=== PATIENT | male | born 1930 | race Hispanic/Latino ===

== ENCOUNTER 2017-10-21 10:05 | Emergency (ER) | payer MEDICARE ==
[2017-10-21] MEDS ORDERED: Famotidine 20 MG TAB ONE (12:49)
[2017-10-21] MEDS ORDERED: hydrOXYzine 25 MG TAB ONE (12:49)
== END 2017-10-21 13:16 | disposition home or self-care (01) ==
LOC: ERS 10:05
DX: L20.9 Atopic dermatitis, unspecified (principal); L29.9 Pruritus, unspecified; E11.9 Type 2 diabetes mellitus without complications; I10 Essential (primary) hypertension; F03.90 Unspecified dementia, unspecified severity, without behavioral disturbance, psychotic disturbance, mood disturbance, and anxiety; Z79.82 Long term (current) use of aspirin; Z79.84 Long term (current) use of oral hypoglycemic drugs; Z79.899 Other long term (current) drug therapy
CPT/HCPCS: 99282

== ENCOUNTER 2017-12-16 09:34 | Outpatient (CLI) | payer MEDICARE ==
[2017-12-16] MEDS ORDERED: ISOVUE-370 76%-LOCM 1 ML ONE (13:31)
== END 2017-12-16 09:35 | disposition home or self-care (01) ==
LOC: BICCT 09:34
PROVIDERS: ATTEND Internal Medicine Geriatric Medicine
DX: R10.30 Lower abdominal pain, unspecified (principal); K80.20 Calculus of gallbladder without cholecystitis without obstruction; N28.1 Cyst of kidney, acquired; N13.30 Unspecified hydronephrosis; N32.89 Other specified disorders of bladder; N40.0 Benign prostatic hyperplasia without lower urinary tract symptoms; K57.30 Diverticulosis of large intestine without perforation or abscess without bleeding
CPT/HCPCS: 74178

== ENCOUNTER 2017-12-19 19:42 | Emergency (ER) | payer MEDICARE ==
[2017-12-19 21:12] LABS: #Eosinphils 0.7 thou/uL (0.0-0.7); #Lymphocytes 1.5 thou/uL (1.20-3.40); #Monocytes 0.7 thou/uL (0.11-0.59); #Neutrophils 3.2 thou/uL (1.40-6.50); %Basophils 0.4 % (0.0-1.0); %Eosinophils 11.7 % (0.0-10.0); %Lymphocytes 24.1 % (21.0-51.0); %Monocytes 11.5 % (0.0-10.0); %Neutrophils 52.3 % (42.0-75.0); Hemoglobin 9.9 g/dL (14.0-18.0); Mean Corpuscular HGB CONC 34.2 g/dL (32.0-36.0); Mean Corpuscular Hemoglobin 31.3 pg (27.0-31.0); Mean Corpuscular Volume 91.5 fL (78.0-98.0); Mean Platelet Volume 6.4 fL (7.4-10.4); Platelet Count 304 thou/uL (130-400); RBC Distribution Width 12.8 % (11.5-14.5); Red Blood Cell (RBC) Count 3.17 mill/uL (4.70-6.10); White Blood Cell (WBC) Count 6.2 thou/uL (4.8-10.8)
[2017-12-19] MEDS ORDERED: hydrALAZINE 20 MG/ML VIAL ONE ×2 (21:30→22:48)
[2017-12-19 21:34] LABS: ALT (SGPT) 8 U/L (8-55); AST (SGOT) 15 U/L (5-34); Albumin 3.3 g/dL (3.4-4.8); Alkaline Phosphatase 93 U/L (40-150); Anion Gap 13 mmol/L (10-20); BUN (Urea Nitrogen) 21 mg/dL (8.4-25.7); Bilirubin, Total 0.3 mg/dL (0.2-1.2); CK (CPK) 37 U/L (30-200); Calc. Creatinine Clearance 0 mL/min (70-130); Carbon Dioxide 24 mmol/L (23-31); Chloride 107 mmol/L (98-107); Estimated GFR-MDRD 60; Globulin 2.9 g/dL (2.4-3.5); Glucose 102 mg/dL (83-110); Lipase 30 U/L (8-78); Potassium 4.9 mmol/L (3.5-5.1); Protein, Total 6.2 g/dL (5.8-8.1); Sodium 139 mmol/L (136-145)
[2017-12-19 21:36] LABS: CKMB 1.1 ng/mL (0-6.6); Troponin I Less than 0.010 ng/mL (< 0.028)
--- NOTE | 2017-12-21 12:44 | EKG ---
Test Reason : Blood Pressure : / mmHG Vent. Rate : 045 BPM Atrial Rate : 045 BPM P-R Int : 172 ms QRS Dur : 092 ms QT Int : 494 ms P-R-T Axes : 054 -09 059 degrees QTc Int : 427 ms Sinus bradycardia Otherwise normal ECG Confirmed by FRANCHESKA SINGH D.O. ([id number]), story editor AXEL TORRES ([id number]) on 12/21/2017 12:44:18 PM Referred By: Confirmed By:FRANCHESKA SINGH D.O.
== END 2017-12-19 23:42 | disposition home or self-care (01) ==
LOC: ERS 19:42
DX: I16.0 Hypertensive urgency (principal); K57.32 Diverticulitis of large intestine without perforation or abscess without bleeding; E11.9 Type 2 diabetes mellitus without complications; I10 Essential (primary) hypertension; F03.90 Unspecified dementia, unspecified severity, without behavioral disturbance, psychotic disturbance, mood disturbance, and anxiety; Z79.84 Long term (current) use of oral hypoglycemic drugs; Z79.82 Long term (current) use of aspirin; Z79.899 Other long term (current) drug therapy
CPT/HCPCS: 36415; 80053; 82553; 83690; 84484; 85025; 93005; 96374; 96376; J0360

== ENCOUNTER 2018-06-26 17:50 | Emergency (ER) | payer MEDICARE ==
[2018-06-26] MEDS ORDERED: Lidocaine 1% w/Epinephrine 1:100K 20 ML VIAL ONE (18:44)
[2018-06-26] MEDS ORDERED: Adacel (T-DAP) 0.5 ML SYRINGE ONE (18:45)
[2018-06-26] MEDS ORDERED: Bacitracin Zinc 1 Packet ONE (19:09)
--- NOTE | 2018-06-26 20:27 | RAD ---
RIGHT HAND THREE VIEWS: History: Fall, laceration. Comparison: None. FINDINGS: There is mild swelling of the soft tissues around the thumb. 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 Moderate vascular calcifications. IMPRESSION: 1. Chronic findings. No acute fracture or malalignment. 2. Soft tissue swelling around the thumb. POS: HOME
--- NOTE | 2018-06-26 20:34 | RAD ---
RIGHT WRIST THREE VIEWS: History: Fall. Laceration. Comparison: None. FINDINGS: Moderate vascular calcifications. No acute fracture or malalignment of the right wrist. There is mild narrowing of the radial carpal joint. There are subcortical cysts of the medial margin of the lunate with positive ulnar variance. Advanced degenerative disease of the right thumb carpal metacarpal joint. IMPRESSION: Degenerative changes. No acute abnormality. POS: HOME
== END 2018-06-26 19:47 | disposition home or self-care (01) ==
LOC: ERS 17:50
DX: S61.501A Unspecified open wound of right wrist, initial encounter (principal); F03.90 Unspecified dementia, unspecified severity, without behavioral disturbance, psychotic disturbance, mood disturbance, and anxiety; I10 Essential (primary) hypertension; E11.9 Type 2 diabetes mellitus without complications; Z79.899 Other long term (current) drug therapy; Z79.84 Long term (current) use of oral hypoglycemic drugs; Z79.82 Long term (current) use of aspirin; W20.8XXA Other cause of strike by thrown, projected or falling object, initial encounter
CPT/HCPCS: 90471; 90715; 93005; J2001

== ENCOUNTER 2018-06-27 16:41 | Emergency (ER) | payer MEDICARE | END 2018-06-27 19:30 | disposition left against medical advice (07) | LOC: ERS 16:41 | DX: Z53.21 Procedure and treatment not carried out due to patient leaving prior to being seen by health care provider (principal); E11.9 Type 2 diabetes mellitus without complications; I10 Essential (primary) hypertension; F03.90 Unspecified dementia, unspecified severity, without behavioral disturbance, psychotic disturbance, mood disturbance, and anxiety; Z79.84 Long term (current) use of oral hypoglycemic drugs; Z79.899 Other long term (current) drug therapy; Z79.82 Long term (current) use of aspirin ==

== ENCOUNTER 2018-11-15 09:41 | Inpatient (IN) | payer MEDICARE ==
[2018-11-15 10:44] LABS: #Eosinphils 0.3 thou/uL (0.0-0.7); #Lymphocytes 1.3 thou/uL (1.20-3.40); #Monocytes 0.9 thou/uL (0.11-0.59); #Neutrophils 7.5 thou/uL (1.40-6.50); %Basophils 0.4 % (0.0-1.0); %Eosinophils 3.2 % (0.0-10.0); %Monocytes 9.3 % (0.0-10.0); %Neutrophils 74.1 % (42.0-75.0); Hemoglobin 9.2 g/dL (14.0-18.0); Mean Corpuscular HGB CONC 30.6 g/dL (32.0-36.0); Mean Corpuscular Hemoglobin 25.4 pg (27.0-31.0); Mean Corpuscular Volume 83.2 fL (78.0-98.0); Mean Platelet Volume 7.1 fL (7.4-10.4); Platelet Count 397 thou/uL (130-400); RBC Distribution Width 15.5 % (11.5-14.5); Red Blood Cell (RBC) Count 3.62 mill/uL (4.70-6.10); White Blood Cell (WBC) Count 10.1 thou/uL (4.8-10.8)
[2018-11-15 10:54] LABS: ALT (SGPT) 7 U/L (8-55); AST (SGOT) 13 U/L (5-34); Albumin 3.4 g/dL (3.4-4.8); Alkaline Phosphatase 89 U/L (40-150); Anion Gap 12 mmol/L (10-20); BUN (Urea Nitrogen) 33 mg/dL (8.4-25.7); Bilirubin, Total 0.4 mg/dL (0.2-1.2); Calc. Creatinine Clearance 0 mL/min (70-130); Calcium 9.1 mg/dL (7.8-10.44); Carbon Dioxide 21 mmol/L (23-31); Chloride 107 mmol/L (98-107); Estimated GFR-MDRD 55; Globulin 3.4 g/dL (2.4-3.5); Glucose 150 mg/dL (83-110); Potassium 3.8 mmol/L (3.5-5.1); Protein, Total 6.8 g/dL (5.8-8.1); Sodium 136 mmol/L (136-145)
[2018-11-15] MEDS ORDERED: ISOVUE-370 76%-LOCM 1 ML ONE (11:03)
--- NOTE | 2018-11-15 11:44 | CT ---
CT Abdomen Pelvis W Con: 11/15/2018 10:03 AM CLINICAL INFORMATION: Prostate mass and bloody urination. COMPARISON: None. TECHNIQUE: Multiple contiguous axial images were obtained and a CT of the abdomen and pelvis with IV contrast. Oral contrast was administered. Coronal reformats were performed. FINDINGS: Lower Chest: within normal limits. Abdomen: Liver: within normal limits. Bile Ducts: Normal caliber. Gallbladder: No calcified gallstones. Normal caliber wall. Pancreas: within normal limits. Spleen: within normal limits. Adrenals: within normal limits. Kidneys: Hypodensities measuring up to 2.7 cm in size represent cysts. No suspicious solid renal mass es are seen. There is a 2 mm nonobstructing calcific lesion in the right kidney. Pelvis: Reproductive Organs: No pelvic masses. Ureters: within normal limits. Bladder: Anterior thickening. The bladder is intimately associated with the sigmoid colon. The prosta te is enlarged without obvious mass. The patient appears to have a TURP defect. Peritoneum: No ascites or free air, no fluid collection. Bowel: Multiple scattered diverticula in the sigmoid colon. There are stranding changes surrounding t he diverticula in the sigmoid colon and along the anterior aspect of the bladder. Normal small bowel and appendix. Mesentery and Retroperitoneum: No enlarged mesenteric or retroperitoneal lymph nodes. Vessels: Atherosclerotic calcifications. Abdominal Wall: within normal limits. Bones: Degenerative changes in the spine. IMPRESSION: 1. The patient appears to have acute diverticulitis with the colon intimately associated with the uri nary bladder. This causes urinary bladder wall thickening and may be a cause for the patient's hematuria. 2. Bilateral renal cysts 3. Nonobstructing right renal calcification
[2018-11-15 12:16] LABS: Bacteria/HPF 4+ HPF (None Seen); Bilirubin Negative (Negative); Blood, Urine 3+ (Negative); Clarity Extra Turbid (Clear); Glucose, Urine (Dipstick) Normal (Negative); Leukocyte 500 Leu/uL (Negative); Nitrite Negative (Negative); Protein, Urine (Dipstick) 100 mg/dL (Neg-Trace); RBC/HPF Greater than 50 HPF (0-3); Urobilinogen Normal mg/dL (Less than 2); WBC/HPF Greater than 50 HPF (0-3)
[2018-11-15] MEDS ORDERED: metroNIDAZOLE 500 MG/100 ML BAG ONE (12:49)
[2018-11-15] MEDS ORDERED: Sodium Chloride 0.9% 1,000 ML IV SCH (14:30)
[2018-11-15 14:34] VITALS: BMI 19.0
[2018-11-15] MEDS ORDERED: Senokot S 8.6-50 MG TAB PO PRN (15:40)
[2018-11-15] MEDS ORDERED: Dextrose 50% Abboject 50 ML SYRINGE SLOW IVP PRN (15:54)
[2018-11-15] MEDS ORDERED: HumaLOG 300 UNITS/3 ML VIAL SC PRN (15:54)
[2018-11-15] MEDS ORDERED: Dextrose 5% in Water 1,000 ML IV PRN (15:54)
[2018-11-15] MEDS: hydrALAZINE 20 MG/ML VIAL SLOW IVP PRN (16:56)
[2018-11-15] MEDS: Sodium Chloride 0.9% 1,000 ML IV SCH (16:56)
[2018-11-15] MEDS: Donepezil HCl 10 MG TAB PO SCH (20:56)
[2018-11-15] MEDS: Lisinopril 20 MG TAB PO SCH (20:56)
[2018-11-15] MEDS: metroNIDAZOLE 500 MG in Premix Bag 1 BAG IVPB SCH (20:59)
[2018-11-15] MEDS ORDERED: metroNIDAZOLE 500 MG in Premix Bag 1 BAG IVPB SCH (22:00)
--- NOTE | 2018-11-15 23:43 | HP ---
CHIEF COMPLAINT: Abdominal pain and hematuria. HISTORY OF PRESENT ILLNESS: The patient is an 88-year-old male with a past medical history of hypertension, diabetes, and BPH who was sent from his PCP's office for abnormal findings on the abdominal exam. The patient's daughters who are at the bedside, Estela, state that the patient normally is very functional, he lives alone, drives, and has been taking care of himself on a regular basis. However, he has been having ongoing hematuria for the past month. He has been checked for UTI and urine cultures by the PCP have been negative. The patient at times will self cath himself due to BPH. The patient states that for the past couple of weeks, he has been cathing himself twice in a week, however, normally he is able to urinate. He now states that he has noticed some clots and some significant pain after doing a self catheterization. The patient denies any fevers or chills, any nausea, vomiting, however, he states he is always cold all the time. He denies any weight loss or loss of appetite. The patient states that normally he does not really eat very much to begin with. His last colonoscopy was about 5 years ago and had some polyps removed. The patient has been recently constipated. PAST MEDICAL HISTORY: He has a history of diabetes, hypertension, BPH. ALLERGIES: HE HAS NO ALLERGIES. MEDICATIONS: He takes; 1. Donepezil 10 mg daily. 2. Chlorthalidone 12.5 daily. 3. Lisinopril 20 mg daily. 4. Metformin 1000 mg b.i.d. 5. Meloxicam 1-2, one p.o. daily. FAMILY HISTORY: No history of heart disease or cancer. PAST SURGICAL HISTORY: He has had orchiectomy. REVIEW OF SYSTEMS: All negative except for the ones mentioned above in the HPI. PHYSICAL EXAMINATION: VITAL SIGNS: Temperature was 98.2, pulse 54, respirations 20, oxygen saturation 98% on room air. His blood pressure was really high, 225/69. GENERAL: He is awake, alert, and oriented x3. Does not appear in any distress. CV: S1, S2 present. No murmurs, rubs, or gallops. ABDOMEN: Soft. Bowel sounds are present x2. He does have pain upon palpation to his left lower quadrant and midline below the umbilical area and some pain upon palpation to his right lower quadrant. NEUROVASCULAR: No focal deficits noted. SKIN: No cuts, lesions, or bruises noted. HEENT: Normocephalic, atraumatic. No lymphadenopathy noted. Pupils are equal and reactive to light. IMAGING: The patient did have a CT of abdomen and pelvis, which indicated thickening of the urinary bladder, also had acute diverticulitis with the colon intimately associated with the urinary bladder and bilateral renal cysts. ASSESSMENT AND PLAN: The patient is a very pleasant 88-year-old male who presents to the hospital with hematuria and was found to have diverticulitis. 1. Acute diverticulitis. We will start the patient on antibiotics. We will also start some gentle IV hydration. He will need a colonoscopy as an outpatient. 2. Hematuria. His H and H are currently stable. I will consult Urology since he has been having clots and he has thickening of the urinary bladder. We will continue to monitor. 3. Hypertension, uncontrolled. We will continue his home medications and p.r.n. 4. Diabetes. We will put the patient on sliding scale insulin and hold metformin. 5. Deep venous thrombosis prophylaxis. We will put the patient on SCDs. Job ID: [id number]
--- NOTE | 2018-11-16 05:17 | CON ---
DATE OF CONSULTATION: REASON FOR CONSULTATION: 1. Gross hematuria. 2. Obstructive voiding symptoms. PROBLEM LIST: Prostate hyperplasia with urinary obstruction, N40.1, N13.8 Recurrent UTI, N39.0 Cystitis, N30.90 Abnormal radiologic findings on diagnostic imaging of renal pelvis, ureter, or bladder, R93.41 Diverticulitis of large intestine with perforation without abscess or bleeding, K57.20 Urinary retention, R33.9 History of smoking 10-25 pack years, Z87.891 Prostate nodule with urinary obstruction, N40.3, N13.8 Gross hematuria, R31.0 HISTORY OF PRESENT ILLNESS: Mr. Ed Hoyos is a very pleasant 88-year-old, partially Telugu-speaking male with no prior significant genitourinary history, who presents with gross hematuria of about 3 weeks duration. The patient also has been reporting trouble with urination. Apparently was evaluated by his primary care provider for a prostate mass as well. The patient presents with gross hematuria, was admitted to the hospital. His urine does show microbes in addition to white cells and red cells on the urinalysis. Mr. Hoyos reports no previous urinary tract infections, urologic evaluations, or use of urologic medications. His discomfort which is most significant in the left lower quadrant. PAST MEDICAL HISTORY: 1. Prostate hypertrophy with history of self catheterization. 2. Hypertension. PAST SURGICAL HISTORY: The patient may have undergone a prostate intervention in the past according to radiologic findings. The findings are compatible with prior cooled microwave thermotherapy by Dr. Christopher June 2015 SOCIAL HISTORY: The patient is a former cigarette smoker with about 10 pack- years of total smoking history as a youth. Does not admit to any current alcohol use. 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 Does not have significant industrial exposures. Family by his report lives in [place]. He has 2 daughters and is currently . He admits to having some memory issues. OUTPATIENT MEDICATION LIST: Includes the followin. Metformin 1000 mg 1/2 a tablet orally once daily. 2. Chlorthalidone one half of a 25 mg tablet p.o. daily. 3. Aricept 10 mg p.o. daily. 4. Meloxicam 15 mg one half tablet p.o. daily. 5. Aspirin 81 mg p.o. daily. 6. Vitamin D2 87027 units once a month. 7. Vitron-C chewable 66/125 mg p.o. daily. 8. Vitamin B12 1000 mcg p.o. daily. 9. Lisinopril 20 mg p.o. daily. ALLERGIES: NO KNOWN DRUG ALLERGIES. PHYSICAL EXAMINATION: VITAL SIGNS: The patient is afebrile with temperature of 97.8, pulse 66, respirations 18, blood pressure currently 220/66, markedly hypertensive. HEAD, EYES, EARS, NOSE, AND THROAT: Extraocular movements are intact. Sclerae anicteric. Oropharynx is clear. NECK: Supple. LUNGS: Clear to auscultation bilaterally. CARDIAC: The patient has a regular rate and rhythm. ABDOMEN: Soft and nontender. There is no suprapubic fullness. BACK: No costovertebral angle tenderness. GENITOURINARY: The patient's phallus is without lesion. Urethral meatus appears adequate. Testes found present in the left hemiscrotum. Right hemiscrotum, the testis appears to be markedly atrophic or absent. Digital rectal examination is performed and finds a post TUR type of prostate gland with moderate remaining tissue or regrowth of tissue. There is no actual mass suggestive of prostate cancer. There is no rectal stool noted. No abnormalities there. EXTREMITIES: The patient is relatively cachectic in appearance, thin build with poor minimal fat distribution. RADIOLOGIC STUDIES: A CT scan of the abdomen and pelvis was performed on 11/15/2018. This study shows the patient's kidneys on the right side with a 2.7 cm renal cyst and also a 2 mm nonobstructing calcified lesion in the right kidney. kidneys otherwise appear relatively normal. The patient's ureters appear within normal limits with no evidence of obstruction. The patient's bladder demonstrates anterior bladder wall thickening up to 1.3 cm in thickness. There is intimate association of the patient's bladder with the sigmoid colon. The patient's prostate is large, but he appears to have an adequate lumen from the TURP defect standpoint. There is no other abnormalities noted other than the anterior bladder wall thickening. There may be some thickening in the dome or bladder diverticula may be present. LABORATORY DATA: [place] [address], hemoglobin is 9.2, hematocrit 30.1. There is no evidence of left shift. Serum chemistries show currently patient with a blood urea nitrogen of 33, creatinine of 1.24, suggesting dehydration. Glucose is elevated at 150. Urinalysis at admission showed turbid urine with 100 mg/dL of protein and 3+ blood present on the dipstick, nitrite was negative. Leukocyte esterase was 500 units , urine red cell was greater than 50, and the white cell count was also greater than 50. Urine bacteria were 4+. Squamous epithelial cells were also present at 4-6 level. ASSESSMENT AND PLAN: 1. Anterior bladder wall thickening may be secondary to external inflammatory cause or related to intrinsic bladder process. The patient is a distant former smoker. Cystoscopic assessment would be relevant. I think this patient probably should proceed to the operating room given his support system on this hospital admission for cystoscopic assessment, possible transurethral resection, if a tumor is found. This probably would be scheduled for Tuesday. At present time, treatment of any possible urinary tract infection should be performed. Culture should be followed from an Infectious Disease standpoint and appropriate antibiotics provided to patient. 2. The patient's complete medical history is not immediately available and family members may have additional details. TIME SPENT: Over 70 minutes of initial evaluation and assessment time was spent in the care of this patient, over of which was in face to face evaluation, or in coordination of care, or in communication with the patient's family regarding care, exclusive of any procedures performed, [id number]. Job ID: [id number] [facility] [place]
[2018-11-16] MEDS: metroNIDAZOLE 500 MG in Premix Bag 1 BAG IVPB SCH ×3 (05:49→21:24)
[2018-11-16] MEDS: Sodium Chloride 0.9% 1,000 ML IV SCH (05:49)
[2018-11-16] MEDS: hydrALAZINE 20 MG/ML VIAL SLOW IVP PRN ×2 (05:51→12:46)
[2018-11-16 06:22] LABS: Anion Gap 10 mmol/L (10-20); BUN (Urea Nitrogen) 26 mg/dL (8.4-25.7); Calc. Creatinine Clearance 34 mL/min (70-130); Calcium 8.8 mg/dL (7.8-10.44); Carbon Dioxide 22 mmol/L (23-31); Chloride 108 mmol/L (98-107); Estimated GFR-MDRD 60; Glucose 94 mg/dL (83-110); Potassium 3.5 mmol/L (3.5-5.1); Sodium 136 mmol/L (136-145)
[2018-11-16] MEDS: Chlorthalidone 25 MG TAB PO SCH (08:10)
[2018-11-16] MEDS: Lisinopril 20 MG TAB PO SCH ×2 (08:10→21:23)
[2018-11-16] MEDS ORDERED: Enoxaparin Sodium 40 MG/0.4 ML SYRINGE SC SCH (09:00)
[2018-11-16] MEDS: Amlodipine 10 MG TAB PO SCH (11:35)
[2018-11-16 15:19] LABS: #Eosinphils 0.4 thou/uL (0.0-0.7); #Lymphocytes 1.1 thou/uL (1.20-3.40); #Monocytes 0.9 thou/uL (0.11-0.59); #Neutrophils 5.1 thou/uL (1.40-6.50); %Basophils 0.2 % (0.0-1.0); %Eosinophils 4.8 % (0.0-10.0); %Lymphocytes 14.6 % (21.0-51.0); %Monocytes 12.4 % (0.0-10.0); %Neutrophils 67.9 % (42.0-75.0); Mean Corpuscular HGB CONC 33.1 g/dL (32.0-36.0); Mean Corpuscular Hemoglobin 26.7 pg (27.0-31.0); Mean Corpuscular Volume 80.7 fL (78.0-98.0); Mean Platelet Volume 6.5 fL (7.4-10.4); Platelet Count 302 thou/uL (130-400); RBC Distribution Width 15.5 % (11.5-14.5); Red Blood Cell (RBC) Count 2.98 mill/uL (4.70-6.10); White Blood Cell (WBC) Count 7.4 thou/uL (4.8-10.8)
[2018-11-16] MEDS: Donepezil HCl 10 MG TAB PO SCH (21:23)
--- NOTE | 2018-11-17 03:29 | CON ---
DATE OF CONSULTATION: 11/15/2018 DATE: 11/16/2018 PROBLEM LIST: Prostate hyperplasia with urinary obstruction, N40.1, N13.8 Recurrent UTI, N39.0 Cystitis, N30.90 Abnormal radiologic findings on diagnostic imaging of renal pelvis, ureter, or bladder, R93.41 Diverticulitis of large intestine with perforation without abscess or bleeding, K57.20 Urinary retention, R33.9 History of smoking 10-25 pack years, Z87.891 Prostate nodule with urinary obstruction, N40.3, N13.8 Gross hematuria, R31.0 REASON FOR CONSULTATION: 1. Gross hematuria. 2. Obstructive voiding symptoms. HISTORY OF PRESENT ILLNESS: Mr. Ed Hoyos is a very pleasant 88-year-old, partially Malay-speaking male, who probably underwent a previous prostate surgery in the past, a TURP or ablation procedure. The patient presented with gross hematuria of about 3 weeks' duration on 11/15/2018. The patient also reported that he had trouble with urination. He was evaluated by his primary care provider for possible prostate mass as well. I evaluated the patient yesterday, and in course of evaluation, I noted probable TUR defect on his physical exam that was consistent with the CT scan findings. The patient overnight has done reasonably well. Some of his urine cultures are back and these appear to have multiple organisms in them. These have been partially speciated, and due to that, there is a possibility that his problem occurs as a colovesical fistula and need to be explored. He does have some substantial bladder wall thickening, especially noted anteriorly at about 1.3 cm. This could all suggest the presence of a urothelial carcinoma and we evaluated for that reason. The patient is currently on ciprofloxacin. PHYSICAL EXAMINATION: VITAL SIGNS: Temperature is 98.4, pulse is 61, blood pressure 144/60. GENERAL: This is a pleasant, awake, elderly partially Malay-speaking male. He is not a very good historian. There is a partial language barrier. The patient has relatively cachectic characteristics. He does not recall having had any kind of procedure ever done on his prostate gland. The patient does not have very good recall of previous surgical events. He reports his gross hematuria has largely resolved during this hospitalization suggesting current antibiotic coverage is suppressing or controlling the infection HEAD, EYES, EARS, NOSE, AND THROAT: Extraocular movements are intact. Sclerae anicteric. Oropharynx is clear. NECK: Supple. LUNGS: Clear to auscultation bilaterally. CARDIAC: Regular rate and rhythm. ABDOMEN: Soft and nontender. GENITOURINARY: No Dawn catheter in place. LABORATORY STUDIES: White count is down to 7400 from 10,100 yesterday. Neutrophils also decreased at 67.9. The ANC is now normal at 5100. Serum chemistries obtained this morning show a chloride of 108, carbon dioxide 22, and blood urea nitrogen of 26 with a creatinine of 1.15, indicating a degree of dehydration. Glucose is elevated at 164. ASSESSMENT: Anterior bladder wall mass, possibly inflammatory given the multiple organisms isolated from the patient's urine, possible colovesical fistula could give this presentation. In addition, a urothelial carcinoma could also cause this, especially with a degree of outlet obstruction and incomplete bladder emptying. PLAN: We plan to take the patient to the operating room tomorrow for cystoscopic assessment on current antibiotic coverage. He is set for n.p.o. status after midnight. TIME SPENT: Over 35 minutes of subsequent evaluation and assessment time was spent in the care of this patient, over of which was in face to face evaluation, or in coordination of care, or in communication with the patient's family regarding care, exclusive of any procedures performed, [id number]. Job ID: [id number] MTDD
[2018-11-17] MEDS: metroNIDAZOLE 500 MG in Premix Bag 1 BAG IVPB SCH ×3 (05:00→21:23)
[2018-11-17] MEDS: Chlorthalidone 25 MG TAB PO SCH (08:45)
[2018-11-17] MEDS: Amlodipine 10 MG TAB PO SCH (08:45)
[2018-11-17] MEDS: Lisinopril 20 MG TAB PO SCH ×2 (08:45→21:23)
[2018-11-17] MEDS: Sodium Chloride 0.9% 1,000 ML IV SCH (13:30)
--- NOTE | 2018-11-17 14:10 | PDOC.HOSPP ---
- Subjective Subjective: pt up in bed no complains - Objective Vital Signs & Weight: Vital Signs (12 hours) Temp Pulse Resp BP BP BP Pulse Ox 11/17/18 13:37 55 L 16 169/58 H 97 11/17/18 11:00 98.1 F 56 L 20 183/73 H 97 11/17/18 08:45 57 L 145/70 H 97 11/17/18 08:00 98.4 F 57 L 18 145/70 H 97 11/17/18 05:37 98.4 F 65 20 162/66 H 98 Weight Weight 121 lb 7 oz I&O: 11/16/18 11/17/18 11/18/18 06:59 06:59 06:59 Intake Total 1280 2019 Output Total 175 Balance 1105 2019 Result Diagrams: 11/16/18 15:03 11/16/18 05:56 Additional Labs: Accuchecks 11/17/18 11/17/18 11/16/18 11:33 05:39 20:01 POC Glucose 100 86 164 H 11/16/18 17:16 POC Glucose 112 H ROS - Review of Systems All systems: All other ROS were reviewed and found negative. ENT: denies: ear pain, ear discharge, nose pain, nose discharge, nose congestion , mouth pain, mouth swelling, throat pain, throat swelling, other Cardiovascular: denies: chest pain, palpitations, orthopnea, paroxysmal noc. dyspnea, edema, light headedness, other - Medication Medications: Active Medications Generic Name Dose Route Start Last Admin Trade Name Freq PRN Reason Stop Dose Admin Amlodipine Besylate 10 mg 11/16/18 09:00 11/17/18 08:45 Norvasc PO 10 mg DAILY KYLIE Administration Chlorthalidone 12.5 mg 11/16/18 09:00 11/17/18 08:45 [place] PO 12.5 mg DAILY KYLIE Administration Donepezil HCl 10 mg 11/15/18 21:00 11/16/18 21:23 Aricept PO 10 mg HS KYLIE Administration Hydralazine HCl 10 mg 11/15/18 16:38 11/16/18 12:46 Apresoline SLOW IVP 10 mg Q6H PRN Administration Blood Pressure Ciprofloxacin/Dextrose 400 mg/ 200 mls @ 200 mls/hr 11/16/18 01:00 11/17/18 13:30 Device IVPB 200 mls 0100,1300 KYLIE Administration Metronidazole 500 mg/ Device 100 mls @ 100 mls/hr 11/15/18 22:00 11/17/18 05: 00 IVPB 100 mls Q8HR KYLIE Administration Sodium Chloride 1,000 mls @ 50 mls/hr 11/17/18 12:15 11/17/18 13:30 Normal Saline 0.9% IV Not Given .Q20H KYLIE Lisinopril 20 mg 11/15/18 21:00 11/17/18 08:45 Zestril PO 20 mg BID KYLIE Administration - Exam Neck: negative: supple, symmetric, no JVD, no Thyromegaly, no lymphadenopathy, no carotid bruit, JVD Heart: negative: RRR, no murmur, no gallops, no rubs, normal peripheral pulses, irregular, diminshed peripheral pulses, murmur present, II/IV, III/IV Respiratory: negative: CTAB, no wheezes, no rales, no ronchi, normal chest expansion, no tachypnea, normal percussion, rales, rhonchi, tachypneic, wheezes Hosp A/P (1) Colitis Code(s): K52.9 - NONINFECTIVE GASTROENTERITIS AND COLITIS, UNSPECIFIED Status : Acute (2) Hematuria Code(s): R31.9 - HEMATURIA, UNSPECIFIED Status: Acute (3) HTN (hypertension) Code(s): I10 - ESSENTIAL (PRIMARY) HYPERTENSION Status: Acute - Plan pt to go for cystoscopy today, will continue abx for now. will continue iv fluids for now.
--- NOTE | 2018-11-17 14:13 | PDOC.HOSPP ---
- Subjective Subjective: pt up walking around with PT - Objective Vital Signs & Weight: Vital Signs (12 hours) Temp Pulse Resp BP BP BP Pulse Ox 11/17/18 13:37 55 L 16 169/58 H 97 11/17/18 11:00 98.1 F 56 L 20 183/73 H 97 11/17/18 08:45 57 L 145/70 H 97 11/17/18 08:00 98.4 F 57 L 18 145/70 H 97 11/17/18 05:37 98.4 F 65 20 162/66 H 98 Weight Weight 121 lb 7 oz I&O: 11/16/18 11/17/18 11/18/18 06:59 06:59 06:59 Intake Total 1280 2019 Output Total 175 Balance 1105 2019 Result Diagrams: 11/16/18 15:03 11/16/18 05:56 Additional Labs: Accuchecks 11/17/18 11/17/18 11/16/18 11:33 05:39 20:01 POC Glucose 100 86 164 H 11/16/18 17:16 POC Glucose 112 H ROS - Review of Systems All systems: All other ROS were reviewed and found negative. Respiratory: denies: cough, dry, shortness of breath, hemoptysis, SOB with excertion, pleuritic pain, sputum, wheezing, other Cardiovascular: denies: chest pain, palpitations, orthopnea, paroxysmal noc. dyspnea, edema, light headedness, other Gastrointestinal: denies: nausea, vomitting, abdominal pain, diarrhea, constipation, melena, hematochezia, other - Medication Medications: Active Medications Generic Name Dose Route Start Last Admin Trade Name Freq PRN Reason Stop Dose Admin Amlodipine Besylate 10 mg 11/16/18 09:00 11/17/18 08:45 Norvasc PO 10 mg DAILY KYLIE Administration Chlorthalidone 12.5 mg 11/16/18 09:00 11/17/18 08:45 Hygro[place] PO 12.5 mg DAILY KYLIE Administration Donepezil HCl 10 mg 11/15/18 21:00 11/16/18 21:23 Aricept PO 10 mg HS KYLIE Administration Hydralazine HCl 10 mg 11/15/18 16:38 11/16/18 12:46 Apresoline SLOW IVP 10 mg Q6H PRN Administration Blood Pressure Ciprofloxacin/Dextrose 400 mg/ 200 mls @ 200 mls/hr 11/16/18 01:00 11/17/18 13:30 Device IVPB 200 mls 0100,1300 KYLIE Administration Metronidazole 500 mg/ Device 100 mls @ 100 mls/hr 11/15/18 22:00 11/17/18 05: 00 IVPB 100 mls Q8HR KYLIE Administration Sodium Chloride 1,000 mls @ 50 mls/hr 11/17/18 12:15 11/17/18 13:30 Normal Saline 0.9% IV Not Given .Q20H KYLIE Lisinopril 20 mg 11/15/18 21:00 11/17/18 08:45 Zestril PO 20 mg BID KYLIE Administration - Exam Neck: negative: supple, symmetric, no JVD, no Thyromegaly, no lymphadenopathy, no carotid bruit, JVD Heart: negative: RRR, no murmur, no gallops, no rubs, normal peripheral pulses, irregular, diminshed peripheral pulses, murmur present, II/IV, III/IV Respiratory: negative: CTAB, no wheezes, no rales, no ronchi, normal chest expansion, no tachypnea, normal percussion, rales, rhonchi, tachypneic, wheezes Hosp A/P (1) Colitis Code(s): K52.9 - NONINFECTIVE GASTROENTERITIS AND COLITIS, UNSPECIFIED Status : Acute (2) Hematuria Code(s): R31.9 - HEMATURIA, UNSPECIFIED Status: Acute (3) HTN (hypertension) Code(s): I10 - ESSENTIAL (PRIMARY) HYPERTENSION Status: Acute (4) Anemia Code(s): D64.9 - ANEMIA, UNSPECIFIED Status: Acute - Plan will continue abx for now. pt to undergo cysto in am. will discontinue iv fluids. pt tolerating his diet. He will need colonoscopy in am
[2018-11-17] MEDS ORDERED: Iothalamate Meglumine 60% 50 ML VIAL FS ONE (16:25)
[2018-11-17] MEDS: Donepezil HCl 10 MG TAB PO SCH (21:23)
[2018-11-18] MEDS: metroNIDAZOLE 500 MG in Premix Bag 1 BAG IVPB SCH (05:15)
[2018-11-18 08:42] VITALS: BP 140/53; TEMP 98.1
[2018-11-18] MEDS: Lisinopril 20 MG TAB PO SCH (10:53)
[2018-11-18] MEDS: Amlodipine 10 MG TAB PO SCH (10:53)
[2018-11-18] MEDS: Chlorthalidone 25 MG TAB PO SCH (11:06)
[2018-11-18 12:06] LABS: #Eosinphils 0.6 thou/uL (0.0-0.7); #Lymphocytes 1.3 thou/uL (1.20-3.40); #Monocytes 0.9 thou/uL (0.11-0.59); #Neutrophils 5.9 thou/uL (1.40-6.50); %Basophils 0.4 % (0.0-1.0); %Eosinophils 6.5 % (0.0-10.0); %Lymphocytes 15.2 % (21.0-51.0); %Monocytes 9.9 % (0.0-10.0); Hemoglobin 8.1 g/dL (14.0-18.0); Mean Corpuscular HGB CONC 32.3 g/dL (32.0-36.0); Mean Corpuscular Hemoglobin 25.9 pg (27.0-31.0); Mean Corpuscular Volume 80.4 fL (78.0-98.0); Mean Platelet Volume 6.6 fL (7.4-10.4); Platelet Count 365 thou/uL (130-400); RBC Distribution Width 15.5 % (11.5-14.5); Red Blood Cell (RBC) Count 3.13 mill/uL (4.70-6.10); White Blood Cell (WBC) Count 8.7 thou/uL (4.8-10.8)
[2018-11-18 12:16] LABS: Anion Gap 10 mmol/L (10-20); BUN (Urea Nitrogen) 24 mg/dL (8.4-25.7); Calc. Creatinine Clearance 30 mL/min (70-130); Calcium 8.5 mg/dL (7.8-10.44); Carbon Dioxide 22 mmol/L (23-31); Chloride 111 mmol/L (98-107); Estimated GFR-MDRD 53; Glucose 148 mg/dL (83-110); Potassium 3.5 mmol/L (3.5-5.1); Sodium 139 mmol/L (136-145)
[2018-11-18] MEDS: Sodium Chloride 0.9% 1,000 ML IV SCH (12:24)
--- NOTE | 2018-11-18 15:46 | DIS ---
DATE OF ADMISSION: 11/15/2018 DATE OF DISCHARGE: 11/18/2018 PRIMARY CARE PROVIDER: Melissa Hammonds MD. DISCHARGE DIAGNOSES: 1. Acute diverticulitis. 2. Bilateral renal cysts. 3. Hematuria. CONSULTATIONS DURING THIS HOSPITALIZATION: Urology, Dr. Jg Chávez. DISCHARGE MEDICATIONS: In addition to the patient's pre-admission home medications as dictated by Dr. Hernandez in history and physical note dated November 15, 2018, Mr. Hoyos is being discharged on ciprofloxacin 500 mg 2 times a day and metronidazole 500 mg 3 times a day for 1 week. HOSPITAL COURSE: Mr. Hoyos is a pleasant 88-year-old gentleman, who was admitted to [facility] on November 15, 2018, for acute diverticulitis. Please refer to Dr. Hernandez's history and physical note dated November 15, 2018, for further details. He also had urinary bladder wall thickening and hematuria at the time of admission. Urology Service was consulted. Initial plan was to do cystoscopy as inpatient. The patient's hematuria resolved and therefore his cystoscopy will be done as an outpatient. The patient continued to improve. Final urine cultures from sample taken on November 14 grew Escherichia coli and Klebsiella pneumoniae. Klebsiella pneumoniae was of intermediate sensitivity to nitrofurantoin, but was otherwise pansensitive. Escherichia coli was resistant to ampicillin and ampicillin/sulbactam and intermediate sensitivity to piperacillin/tazobactam, but was otherwise sensitive to other antibiotics. The patient is being discharged home on ciprofloxacin and metronidazole. On the day of discharge, Mr. Hoyos has sodium 139, potassium 3.5, creatinine 1.28, white count 8700, hemoglobin 8.1, and platelet count 365,000. Many thanks for allowing me to participate in your patient's care. Please feel free to contact me with any questions or concerns. FOLLOWUP APPOINTMENTS: The patient is advised to follow up with his primary care provider in 3 to 5 days time and with Urology Service in 2 to 3 weeks time. DISCHARGE DESTINATION: Home. TIME SPENT: Total amount of time spent coordinating this discharge: 32 minutes. Job ID: [id number]
== END 2018-11-18 15:02 | disposition home or self-care (01) | DRG 392 ==
LOC: ERS 09:41 → T4-B 12:28
PROVIDERS: ADMIT Internal Medicine; ATTEND Internal Medicine
DX: K57.92 Diverticulitis of intestine, part unspecified, without perforation or abscess without bleeding (principal); N40.0 Benign prostatic hyperplasia without lower urinary tract symptoms; E11.9 Type 2 diabetes mellitus without complications; I10 Essential (primary) hypertension; K59.00 Constipation, unspecified; R31.9 Hematuria, unspecified; F17.210 Nicotine dependence, cigarettes, uncomplicated; K52.9 Noninfective gastroenteritis and colitis, unspecified; D64.9 Anemia, unspecified; N28.1 Cyst of kidney, acquired; B96.1 Klebsiella pneumoniae [K. pneumoniae] as the cause of diseases classified elsewhere
CPT/HCPCS: 36415; 36416; 74177; 80048; 80053; 81003; 81015; 85025; 87077; 87086; 87186; 96365; 96375; J0360; J0744